=== PATIENT | female | born 1995 | race Caucasian/White ===

== ENCOUNTER 2024-02-05 12:49 | Emergency (ER) | payer MEDICAID ==
[~2024-02-05] VITALS: Wt 97.1 kg
== END 2024-02-05 15:15 | disposition home or self-care (01) ==
LOC: ED 12:49
DX: K64.8 Other hemorrhoids (principal); M25.561 Pain in right knee

== ENCOUNTER 2024-02-15 16:00 | Emergency (ER) | payer MEDICAID ==
[~2024-02-15] VITALS: Ht 162.5 cm; Wt 97.5 kg
[2024-02-15] MEDS ORDERED: LASIX20 MG PO (16:58)
== END 2024-02-15 19:22 | disposition home or self-care (01) ==
LOC: ED 16:00
DX: M72.2 Plantar fascial fibromatosis (principal); R60.0 Localized edema

== ENCOUNTER 2024-02-26 22:17 | Emergency (ER) | payer MEDICAID ==
[~2024-02-26] VITALS: Ht 167.6 cm; Wt 98.9 kg
[~2024-02-26 22:17] MED LIST: LASIX20 MG PO
[2024-02-26] MEDS ORDERED: Tdap Vaccine 0.5 ML SYR (Adult Vaccine) IM ONE (23:00)
[2024-02-26] MEDS ORDERED: CLINDAMYCIN HC300 MG PO (23:00)
[2024-02-26] MEDS ORDERED: SEPTDS PO (23:00)
[2024-02-26] MEDS ORDERED: Rabies Immune Globulin 300 UNIT/2 ML VIAL IM ONE (23:00)
[2024-02-26] MEDS ORDERED: Sulfamethoxazole/Trimethopri 1 TAB TAB PO ONE (23:00)
[2024-02-26] MEDS ORDERED: Rabies Vaccine 1 ML VIAL IM ONE (23:00)
[2024-02-26] MEDS ORDERED: CLINDAMYCIN HCL 300 MG CAPSULE PO ONE (23:00)
[2024-02-26] MEDS ORDERED: RABIES IMMUNE GLOBULIN U RABIES IMMUNE GLOBULIN U IM ONE (23:05)
== END 2024-02-26 23:14 | disposition home or self-care (01) ==
LOC: ED 22:17
DX: S61.251A Open bite of left index finger without damage to nail, initial encounter (principal); F17.200 Nicotine dependence, unspecified, uncomplicated; Z79.899 Other long term (current) drug therapy; W53.21XA Bitten by squirrel, initial encounter; Y93.89 Activity, other specified; Y92.89 Other specified places as the place of occurrence of the external cause; Y99.8 Other external cause status

== ENCOUNTER 2024-03-09 23:16 | Emergency (ER) | payer MEDICAID ==
[~2024-03-09] VITALS: Ht 162.5 cm; Wt 95.7 kg
[~2024-03-09 23:16] MED LIST changes: +CLINDAMYCIN HC300 MG PO; +SEPTDS PO
[2024-03-10 00:37] LABS: BASO % 0.3 % (0.0-1.0); EOS # 0.1 10*3/uL (0.0-0.4); EOS % 0.9 % (1.0-4.0); HEMATOCRIT 37.8 % (37.0-47.0); LYMPH # 3.4 10*3/uL (1.3-4.4); MEAN CELL VOLUME 91.1 fl (81.0-99.0); MEAN CORPUSCULAR HGB 32.3 pg (27.0-31.0); MEAN CORPUSCULAR HGB CONC 35.4 g/dl (33.0-37.0); MEAN PLATELET VOLUME 9.1 fl (9.6-12.3); MONO # 0.5 10*3/uL (0.1-1.0); MONO % 4.3 % (3.0-9.0); NEUT # 8.4 10*3/uL (2.3-7.9); NEUT % 67.2 % (47.0-73.0); PLATELET COUNT AUTOMATED 264 10*3/uL (130-400); RED BLOOD COUNT 4.15 10*6/uL (4.10-5.10); RED CELL DISTRI WIDTH 12.5 % (0-14.5); WHITE BLOOD COUNT 12.5 10*3/uL (4.8-10.8)
[2024-03-10 00:58] LABS: ALKALINE PHOSPHATASE 43 U/L (46-116); BUN 7 mg/dl (9-23); CHLORIDE 108 mmol/L (98-107); POTASSIUM 3.8 mmol/L (3.4-5.1); SGPT/ALT 10 U/L (5-49); TOTAL PROTEIN 6.6 gm/dL (6.0-8.0)
== END 2024-03-10 04:16 | disposition home or self-care (01) ==
LOC: ED 23:16
PROVIDERS: Emergency Medicine
DX: R07.89 Other chest pain (principal); Z88.0 Allergy status to penicillin; F17.200 Nicotine dependence, unspecified, uncomplicated